=== PATIENT | male | born 1990 | race Caucasian/White ===

== ENCOUNTER 2023-05-04 13:11 | Inpatient (IN) | payer OTHER ==
[~2023-05-04] VITALS: Ht 190.5 cm; Wt 94.8 kg
[2023-05-04] MEDS ORDERED: FAMOTIDINE 20MG TABLET PO SCH (14:15)
[2023-05-04] MEDS ORDERED: ONDANSETRON 4MG ODT PO STA (14:15)
[2023-05-04] MEDS ORDERED: MAGNESIUM/ALUMINUM HYDROXIDE/SIMETHICONE 30ML UDC PO STA (14:15)
[2023-05-04 14:41] LABS: BASOPHILS % 0.2 % (0.0-2.0); HEMATOCRIT. 48.9 % (42.0-52.0); HEMOGLOBIN. 16.4 g/dL (14.0-18.0); LYMPHOCYTES % 11.9 % (20.0-50.0); MEAN CORPUSCULAR HEMOGLOBIN 31.4 pg (28.0-32.0); MEAN CORPUSCULAR HGB CONC 33.5 g/dL (31.0-37.0); MEAN CORPUSCULAR VOLUME 93.7 fL (80.0-94.0); MONOCYTES % 6.7 % (2.0-8.0); NEUTROPHILS % 81.2 % (40.0-76.0); PLATELET 286 x1000/uL (130-400); RED BLOOD CELL COUNT 5.22 mill/uL (4.7-6.1); RED CELL DISTRIBUTION WIDTH 14.9 % (11.6-14.6); WHITE BLOOD COUNT 20.5 x1000/uL (4.5-11.0)
[2023-05-04 14:45] LABS: CHLORIDE 103 mEq/L (98-107); INDEX HEMOLYSI 1 (1-3); INDEX ICTERIC 1 (1-4); INDEX LIPEMIC 1 (1-3); POTASSIUM 3.3 mEq/L (3.5-5.1); SODIUM 137 mEq/L (136-145)
[2023-05-04 14:55] LABS: ALANINE AMINOTRANSFERASE 33 IU/L (13-61); ALBUMIN 4.2 g/dL (3.4-5.0); ASPARTATE AMINOTRANSFERASE 30 IU/L (15-37); BILIRUBIN TOTAL 0.4 mg/dL (0.1-1.0); CALCIUM 9.3 mg/dL (8.5-10.1); CARBON DIOXIDE 20 mEq/L (21-32); GLUCOSE 134 mg/dL (70-105); PROTEIN TOTAL 8.4 g/dL (6.0-8.3); UREA NITROGEN BLOOD 15 mg/dL (7-21)
[2023-05-04] MEDS ORDERED: MAGNESIUM/ALUMINUM HYDROXIDE/SIMETHICONE 30ML UDC PO NR (17:15)
[2023-05-04] MEDS ORDERED: FAMOTIDINE 20MG TABLET PO NR (17:15)
[2023-05-04] MEDS ORDERED: ONDANSETRON 4MG ODT PO NR (17:15)
[2023-05-04] MEDS ORDERED: ONDANSETRON HCL 4MG/2ML INJ IV STA (17:54)
[2023-05-04] MEDS ORDERED: MORPHINE SULFATE 4 MG/ML CPJ (NOT FOR IM USE) IV STA (17:54)
[2023-05-04] MEDS ORDERED: MORPHINE SULFATE 10 MG/ML CPJ IV ONE (19:00)
[2023-05-04] MEDS ORDERED: SODIUM CHLORIDE 0.9% 1,000 ML IV ONE (19:00)
[2023-05-04] MEDS ORDERED: MORPHINE SULFATE 10 MG/ML CPJ IV NR (19:15)
[2023-05-04] MEDS ORDERED: HYDROMORPHONE HCL/PF 2MG/ML CPJ IV ONE (20:15)
[2023-05-05] MEDS ORDERED: HYDROMORPHONE HCL/PF 2MG/ML CPJ IV ONE (01:00)
[2023-05-05 02:40] VITALS: BP 155/92; PULSE 95; RESP 18; TEMP 97.1
[2023-05-05] MEDS ORDERED: NALOXONE HCL 0.4MG/ML VIAL IV PRN (04:15)
[2023-05-05] MEDS: DEXT 5%/0.45% NACL KCL 20MEQ/L 1,000 ML IV SCH ×2 (04:26→21:47)
[2023-05-05] MEDS: MORPHINE SULFATE 2 MG/ML CPJ (NOT FOR IM USE) IV PRN ×4 (04:27→22:54)
[2023-05-05 08:00] VITALS: BP 145/92; PULSE 97; RESP 18; TEMP 96.9
[2023-05-05 10:59] LABS: HEMATOCRIT. 49.6 % (42.0-52.0); HEMOGLOBIN. 16.4 g/dL (14.0-18.0); MEAN CORPUSCULAR HGB CONC 33.1 g/dL (31.0-37.0); MEAN CORPUSCULAR VOLUME 93.9 fL (80.0-94.0); PLATELET 205 x1000/uL (130-400); RED BLOOD CELL COUNT 5.28 mill/uL (4.7-6.1); RED CELL DISTRIBUTION WIDTH 15.1 % (11.6-14.6); WHITE BLOOD COUNT 14.3 x1000/uL (4.5-11.0)
[2023-05-05 11:01] LABS: DIFFERENTIAL COMMENT 1
[2023-05-05 11:05] LABS: CHLORIDE 100 mEq/L (98-107); INDEX HEMOLYSI 4 (1-3); INDEX ICTERIC 1 (1-4); INDEX LIPEMIC 1 (1-3); SODIUM 128 mEq/L (136-145)
[2023-05-05 11:14] LABS: AMYLASE 427 IU/L (25-115); CALCIUM 8.4 mg/dL (8.5-10.1); CARBON DIOXIDE 20 mEq/L (21-32); CHOLESTEROL 147 mg/dL (<200); CREATININE 1.1 mg/dL (0.6-1.3); GLUCOSE 381 mg/dL (70-105); HDL CHOLESTEROL 90 mg/dL (40-59); LDL CHOLESTEROL 42 mg/dL (5-100); UREA NITROGEN BLOOD 26 mg/dL (7-21)
[2023-05-05 11:40] LABS: POTASSIUM 5.5 mEq/L (3.5-5.1)
[2023-05-05 12:00] VITALS: BP 148/105; PULSE 102; RESP 19; TEMP 96.9
[2023-05-05 15:22] LABS: PLATELET ESTIMATE NORMAL
[2023-05-05 16:00] VITALS: BP 134/98; PULSE 108; RESP 18; TEMP 97.7
[2023-05-05 21:54] VITALS: BP 146/88; PULSE 102; RESP 20; TEMP 98
[2023-05-06] MEDS: KETOROLAC 30MG/ML VIAL IV PRN ×2 (03:07→13:40)
[2023-05-06 06:55] LABS: HEMOGLOBIN. 14.5 g/dL (14.0-18.0); MEAN CORPUSCULAR HGB CONC 33.7 g/dL (31.0-37.0); MEAN CORPUSCULAR VOLUME 95.2 fL (80.0-94.0); MEAN PLATELET VOLUME 9.6 fl (7.4-10.4); PLATELET 150 x1000/uL (130-400); RED BLOOD CELL COUNT 4.51 mill/uL (4.7-6.1); RED CELL DISTRIBUTION WIDTH 15.1 % (11.6-14.6)
[2023-05-06 07:47] LABS: DIFFERENTIAL COMMENT 1
[2023-05-06] MEDS: MORPHINE SULFATE 2 MG/ML CPJ (NOT FOR IM USE) IV PRN ×2 (08:59→20:53)
[2023-05-06] MEDS: PANTOPRAZOLE SODIUM 40 MG/VIAL IV SCH (08:59)
[2023-05-06 11:07] LABS: POTASSIUM 5.9 mEq/L (3.5-5.1)
[2023-05-06 11:19] LABS: CALCIUM 8.5 mg/dL (8.5-10.1); CREATININE 1.7 mg/dL (0.6-1.3)
[2023-05-06] MEDS ORDERED: DEXT 5%/0.9% NACL 1,000 ML IV SCH (13:30)
[2023-05-06] MEDS: SODIUM CHLORIDE 0.9% 1,000 ML IV SCH ×3 (15:00→23:32)
[2023-05-06] MEDS ORDERED: CLONIDINE 0.1MG TABLET PO PRN (15:15)
[2023-05-06] MEDS ORDERED: PIPERACILLIN/TAZ 3.375G PREMIX 50 ML IV SCH (15:15)
[2023-05-06] MEDS ORDERED: ONDANSETRON HCL 4MG/2ML INJ IV PRN (15:15)
[2023-05-06 17:11] LABS: PLATELET ESTIMATE NORMAL
[2023-05-06] MEDS: PIPERACILLIN/TAZOBACTAM 3.375G in DEXT 5% WATER 50ML IV SCH ×2 (17:32→23:32)
[2023-05-06 20:00] VITALS: BP 136/92; PULSE 85; RESP 18; TEMP 101.3
[2023-05-06] MEDS ORDERED: DEXTROSE 50% WATER 50ML SYRINGE IV PRN ×2 (20:00→22:30)
[2023-05-06] MEDS ORDERED: INSULIN LISPRO 100 UNITS/ML SUBCUT NR (20:30)
[2023-05-06] MEDS: ENOXAPARIN 40MG/0.4ML SYR SUBCUT SCH (20:52)
[2023-05-06] MEDS: INSULIN LISPRO 100 UNITS/ML SUBCUT SCH ×2 (20:55→21:00)
[2023-05-06] MEDS: ACETAMINOPHEN 325MG TABLET PO PRN (20:58)
[2023-05-06] MEDS ORDERED: BLOOD SUGAR DIAGNOSTIC STRIP TEST SCH (21:00)
[2023-05-06 21:31] LABS: BASOPHILS % 0.2 % (0.0-2.0); HEMATOCRIT. 39.3 % (42.0-52.0); HEMOGLOBIN. 12.9 g/dL (14.0-18.0); LYMPHOCYTES % 10.8 % (20.0-50.0); MEAN CORPUSCULAR HEMOGLOBIN 31.8 pg (28.0-32.0); MEAN CORPUSCULAR VOLUME 96.4 fL (80.0-94.0); MEAN PLATELET VOLUME 9.7 fl (7.4-10.4); MONOCYTES % 11.8 % (2.0-8.0); NEUTROPHILS % 77.2 % (40.0-76.0); PLATELET 140 x1000/uL (130-400); RED BLOOD CELL COUNT 4.08 mill/uL (4.7-6.1); RED CELL DISTRIBUTION WIDTH 15.4 % (11.6-14.6); WHITE BLOOD COUNT 9.8 x1000/uL (4.5-11.0)
[2023-05-06 21:39] LABS: CALCIUM 8.6 mg/dL (8.5-10.1)
[2023-05-06 21:44] LABS: CREATININE 1.7 mg/dL (0.6-1.3)
[2023-05-07] VITALS: BP 125/82; PULSE 85; RESP 17; TEMP 98.8
[2023-05-07] MEDS: KETOROLAC 30MG/ML VIAL IV PRN ×3 (00:53→21:23)
[2023-05-07] MEDS: SODIUM CHLORIDE 0.9% 1,000 ML IV SCH ×6 (02:42→22:57)
[2023-05-07 04:00] VITALS: BP 122/84; PULSE 91; RESP 20; TEMP 98.8
[2023-05-07] MEDS: PIPERACILLIN/TAZOBACTAM 3.375G in DEXT 5% WATER 50ML IV SCH ×3 (05:29→21:44)
[2023-05-07] MEDS: MORPHINE SULFATE 2 MG/ML CPJ (NOT FOR IM USE) IV PRN ×3 (05:30→18:51)
[2023-05-07 07:11] LABS: BASOPHILS % 0.3 % (0.0-2.0); DIFFERENTIAL COMMENT 0; EOSINOPHILS % 0.9 % (0.0-5.0); HEMATOCRIT. 36.5 % (42.0-52.0); HEMOGLOBIN. 12.4 g/dL (14.0-18.0); LYMPHOCYTES % 14.3 % (20.0-50.0); MEAN CORPUSCULAR HEMOGLOBIN 32.1 pg (28.0-32.0); MEAN CORPUSCULAR HGB CONC 34.1 g/dL (31.0-37.0); MEAN CORPUSCULAR VOLUME 94.2 fL (80.0-94.0); MEAN PLATELET VOLUME 9.6 fl (7.4-10.4); MONOCYTES % 14.5 % (2.0-8.0); PLATELET 134 x1000/uL (130-400); RED BLOOD CELL COUNT 3.87 mill/uL (4.7-6.1); RED CELL DISTRIBUTION WIDTH 15.1 % (11.6-14.6); WHITE BLOOD COUNT 8.7 x1000/uL (4.5-11.0)
[2023-05-07] MEDS: BLOOD SUGAR DIAGNOSTIC STRIP TEST SCH (07:28)
[2023-05-07 07:38] LABS: CHLORIDE 102 mEq/L (98-107); INDEX HEMOLYSI 4 (1-3); INDEX ICTERIC 2 (1-4); INDEX LIPEMIC 1 (1-3); SODIUM 135 mEq/L (136-145)
[2023-05-07 07:46] LABS: ALANINE AMINOTRANSFERASE 25 IU/L (13-61); ALBUMIN 2.9 g/dL (3.4-5.0); ASPARTATE AMINOTRANSFERASE 145 IU/L (15-37); BILIRUBIN DIRECT 0.9 mg/dL (0.0-0.2); BILIRUBIN TOTAL 2.3 mg/dL (0.1-1.0); CALCIUM 8.2 mg/dL (8.5-10.1); CARBON DIOXIDE 26 mEq/L (21-32); CREATININE 1.8 mg/dL (0.6-1.3); GLUCOSE 205 mg/dL (70-105); PROTEIN TOTAL 6.8 g/dL (6.0-8.3); UREA NITROGEN BLOOD 54 mg/dL (7-21)
[2023-05-07 07:51] LABS: POTASSIUM 4.6 mEq/L (3.5-5.1)
[2023-05-07 08:00] VITALS: BP 123/78; PULSE 81; RESP 20; TEMP 98.8
[2023-05-07] MEDS: PANTOPRAZOLE SODIUM 40 MG/VIAL IV SCH (09:46)
[2023-05-07] MEDS: INSULIN LISPRO 100 UNITS/ML SUBCUT SCH ×4 (09:55→21:16)
[2023-05-07 12:00] VITALS: BP 127/75; PULSE 83; RESP 19; TEMP 100.2
[2023-05-07] MEDS: ACETAMINOPHEN 325MG TABLET PO PRN ×2 (14:13→21:14)
[2023-05-07 16:00] VITALS: BP 117/73; PULSE 87; RESP 19; TEMP 99.2
[2023-05-07 20:00] VITALS: BP 110/65; PULSE 88; RESP 19; TEMP 101.8
[2023-05-07] MEDS: ENOXAPARIN 40MG/0.4ML SYR SUBCUT SCH (21:15)
[2023-05-08] VITALS: BP 115/72; PULSE 82; RESP 18; TEMP 100.4
[2023-05-08] MEDS: MORPHINE SULFATE 2 MG/ML CPJ (NOT FOR IM USE) IV PRN ×2 (01:10→10:00)
[2023-05-08] MEDS: SODIUM CHLORIDE 0.9% 1,000 ML IV SCH ×3 (03:35→23:24)
[2023-05-08 04:00] VITALS: BP 117/73; PULSE 84; RESP 18; TEMP 99
[2023-05-08] MEDS: PIPERACILLIN/TAZOBACTAM 3.375G in DEXT 5% WATER 50ML IV SCH ×3 (05:26→22:08)
[2023-05-08] MEDS: KETOROLAC 30MG/ML VIAL IV PRN (05:36)
[2023-05-08] MEDS: BLOOD SUGAR DIAGNOSTIC STRIP TEST SCH ×3 (06:54→17:22)
[2023-05-08 07:21] LABS: HEMATOCRIT. 34.8 % (42.0-52.0); HEMOGLOBIN. 11.7 g/dL (14.0-18.0); MEAN CORPUSCULAR HEMOGLOBIN 31.6 pg (28.0-32.0); MEAN CORPUSCULAR HGB CONC 33.5 g/dL (31.0-37.0); MEAN CORPUSCULAR VOLUME 94.3 fL (80.0-94.0); MEAN PLATELET VOLUME 9.3 fl (7.4-10.4); PLATELET 165 x1000/uL (130-400); RED BLOOD CELL COUNT 3.69 mill/uL (4.7-6.1); RED CELL DISTRIBUTION WIDTH 15.5 % (11.6-14.6); WHITE BLOOD COUNT 11.6 x1000/uL (4.5-11.0)
[2023-05-08 07:22] LABS: PROTHROMBIN TIME 10.4 sec (9.6-11.0)
[2023-05-08 07:27] LABS: DIFFERENTIAL COMMENT 1
[2023-05-08 08:00] VITALS: BP 115/69; PULSE 84; RESP 20; TEMP 100.9
[2023-05-08 08:28] LABS: CHLORIDE 97 mEq/L (98-107); INDEX HEMOLYSI 4 (1-3); INDEX ICTERIC 1 (1-4); INDEX LIPEMIC 1 (1-3); SODIUM 132 mEq/L (136-145)
[2023-05-08] MEDS: INSULIN LISPRO 100 UNITS/ML SUBCUT SCH ×4 (08:50→20:47)
[2023-05-08 08:53] LABS: ALANINE AMINOTRANSFERASE 26 IU/L (13-61); ALBUMIN 2.8 g/dL (3.4-5.0); AMYLASE 298 IU/L (25-115); ASPARTATE AMINOTRANSFERASE 62 IU/L (15-37); BILIRUBIN DIRECT 0.6 mg/dL (0.0-0.2); BILIRUBIN TOTAL 1.6 mg/dL (0.1-1.0); CALCIUM 8.4 mg/dL (8.5-10.1); CARBON DIOXIDE 27 mEq/L (21-32); CREATININE 1.3 mg/dL (0.6-1.3); GLUCOSE 232 mg/dL (70-105); LACTATE DEHYDROGENASE 1262 IU/L (100-240); PROTEIN TOTAL 6.9 g/dL (6.0-8.3); UREA NITROGEN BLOOD 35 mg/dL (7-21)
[2023-05-08] MEDS: PANTOPRAZOLE SODIUM 40 MG/VIAL IV SCH (09:42)
[2023-05-08 10:41] LABS: PLATELET ESTIMATE NORMAL
[2023-05-08 12:00] VITALS: BP 115/69; PULSE 86; RESP 20; TEMP 100.2
[2023-05-08] MEDS ORDERED: HYDROCODONE/ACETAMINOPHEN 5/325MG TABLET PO PRN (12:00)
[2023-05-08 13:07] LABS: POTASSIUM 4.2 mEq/L (3.5-5.1)
[2023-05-08] MEDS: ACETAMINOPHEN 325MG TABLET PO PRN (17:46)
[2023-05-08 18:00] VITALS: BP 115/69; PULSE 90; RESP 20; TEMP 101.7
[2023-05-08 20:00] VITALS: BP 119/64; PULSE 92; RESP 22; TEMP 100.4
[2023-05-08] MEDS: ENOXAPARIN 40MG/0.4ML SYR SUBCUT SCH (20:35)
[2023-05-09] VITALS: BP 108/66; PULSE 88; RESP 20; TEMP 100.6
[2023-05-09 04:00] VITALS: BP 107/69; PULSE 85; RESP 19; TEMP 100.6
[2023-05-09] MEDS: SODIUM CHLORIDE 0.9% 1,000 ML IV SCH ×3 (06:00→19:38)
[2023-05-09] MEDS: PIPERACILLIN/TAZOBACTAM 3.375G in DEXT 5% WATER 50ML IV SCH ×3 (06:01→21:26)
[2023-05-09] MEDS: ACETAMINOPHEN 325MG TABLET PO PRN ×2 (06:07→16:37)
[2023-05-09] MEDS: INSULIN LISPRO 100 UNITS/ML SUBCUT SCH ×5 (06:43→21:37)
[2023-05-09 07:26] LABS: HEMATOCRIT. 32.7 % (42.0-52.0); HEMOGLOBIN. 10.9 g/dL (14.0-18.0); MEAN CORPUSCULAR HEMOGLOBIN 31.6 pg (28.0-32.0); MEAN CORPUSCULAR HGB CONC 33.4 g/dL (31.0-37.0); MEAN CORPUSCULAR VOLUME 94.7 fL (80.0-94.0); MEAN PLATELET VOLUME 9.1 fl (7.4-10.4); PLATELET 191 x1000/uL (130-400); RED BLOOD CELL COUNT 3.45 mill/uL (4.7-6.1); RED CELL DISTRIBUTION WIDTH 15.1 % (11.6-14.6); WHITE BLOOD COUNT 11.6 x1000/uL (4.5-11.0)
[2023-05-09 07:38] LABS: CHLORIDE 98 mEq/L (98-107); INDEX HEMOLYSI 4 (1-3); INDEX ICTERIC 1 (1-4); INDEX LIPEMIC 1 (1-3); SODIUM 131 mEq/L (136-145)
[2023-05-09 07:41] LABS: POTASSIUM 4.7 mEq/L (3.5-5.1)
[2023-05-09 07:48] LABS: ALANINE AMINOTRANSFERASE 21 IU/L (13-61); ALBUMIN 2.6 g/dL (3.4-5.0); ASPARTATE AMINOTRANSFERASE 35 IU/L (15-37); BILIRUBIN DIRECT 0.5 mg/dL (0.0-0.2); BILIRUBIN TOTAL 1.1 mg/dL (0.1-1.0); CALCIUM 8.5 mg/dL (8.5-10.1); CARBON DIOXIDE 26 mEq/L (21-32); CREATININE 1.1 mg/dL (0.6-1.3); GLUCOSE 255 mg/dL (70-105); PROTEIN TOTAL 6.7 g/dL (6.0-8.3); UREA NITROGEN BLOOD 18 mg/dL (7-21)
[2023-05-09 08:00] VITALS: BP 108/65; PULSE 80; RESP 18; TEMP 98.8
[2023-05-09 08:07] LABS: DIFFERENTIAL COMMENT 1
[2023-05-09] MEDS: PANTOPRAZOLE SODIUM 40 MG/VIAL IV SCH (08:40)
[2023-05-09 12:00] VITALS: BP 122/75; PULSE 82; RESP 18; TEMP 98.6
[2023-05-09] MEDS ORDERED: INSULIN GLARGINE 100 UNITS/ML SUBCUT NR (13:00)
[2023-05-09 16:00] VITALS: BP 125/75; PULSE 86; RESP 18; TEMP 100.9
[2023-05-09 16:26] LABS: PLATELET ESTIMATE NORMAL
[2023-05-09 20:00] VITALS: BP 113/78; PULSE 79; RESP 18; TEMP 99.1
[2023-05-09] MEDS: ENOXAPARIN 40MG/0.4ML SYR SUBCUT SCH (21:27)
[2023-05-09] MEDS: BLOOD SUGAR DIAGNOSTIC STRIP TEST SCH (21:28)
[2023-05-10] VITALS: BP 116/75; PULSE 84; RESP 18; TEMP 100.4
[2023-05-10] MEDS: SODIUM CHLORIDE 0.9% 1,000 ML IV SCH ×4 (00:30→15:30)
[2023-05-10] MEDS: ACETAMINOPHEN 325MG TABLET PO PRN (00:37)
[2023-05-10 04:00] VITALS: BP 118/77; PULSE 78; RESP 18; TEMP 99.5
[2023-05-10] MEDS: PIPERACILLIN/TAZOBACTAM 3.375G in DEXT 5% WATER 50ML IV SCH ×2 (05:57→13:54)
[2023-05-10 07:46] LABS: HEMATOCRIT. 30.8 % (42.0-52.0); HEMOGLOBIN. 10.4 g/dL (14.0-18.0); MEAN CORPUSCULAR HEMOGLOBIN 31.7 pg (28.0-32.0); MEAN CORPUSCULAR HGB CONC 33.9 g/dL (31.0-37.0); MEAN CORPUSCULAR VOLUME 93.8 fL (80.0-94.0); MEAN PLATELET VOLUME 9.5 fl (7.4-10.4); PLATELET 229 x1000/uL (130-400); RED BLOOD CELL COUNT 3.28 mill/uL (4.7-6.1); RED CELL DISTRIBUTION WIDTH 15.1 % (11.6-14.6); WHITE BLOOD COUNT 12.8 x1000/uL (4.5-11.0)
[2023-05-10] MEDS: INSULIN LISPRO 100 UNITS/ML SUBCUT SCH ×3 (07:50→17:26)
[2023-05-10 08:00] VITALS: BP 122/75; PULSE 75; RESP 19; TEMP 100.1
[2023-05-10 08:03] LABS: DIFFERENTIAL COMMENT 1
[2023-05-10 08:10] LABS: CHLORIDE 102 mEq/L (98-107); INDEX HEMOLYSI 3 (1-3); INDEX ICTERIC 1 (1-4); INDEX LIPEMIC 1 (1-3); POTASSIUM 3.6 mEq/L (3.5-5.1); SODIUM 139 mEq/L (136-145)
[2023-05-10 08:16] LABS: ALANINE AMINOTRANSFERASE 20 IU/L (13-61); ALBUMIN 2.3 g/dL (3.4-5.0); ASPARTATE AMINOTRANSFERASE 29 IU/L (15-37); BILIRUBIN DIRECT 0.4 mg/dL (0.0-0.2); BILIRUBIN TOTAL 0.9 mg/dL (0.1-1.0); CALCIUM 7.9 mg/dL (8.5-10.1); CARBON DIOXIDE 28 mEq/L (21-32); CREATININE 0.9 mg/dL (0.6-1.3); GLUCOSE 175 mg/dL (70-105); PROTEIN TOTAL 6.1 g/dL (6.0-8.3); UREA NITROGEN BLOOD 10 mg/dL (7-21)
[2023-05-10] MEDS ORDERED: METF-414 MT (09:58)
[2023-05-10] MEDS ORDERED: LEVO750T68 MT (09:58)
[2023-05-10] MEDS: PANTOPRAZOLE SODIUM 40 MG/VIAL IV SCH (10:32)
[2023-05-10 12:00] VITALS: BP 132/74; PULSE 75; RESP 18; TEMP 99.9
[2023-05-10 12:28] VITALS: BP 132/74; PULSE 75; TEMP 99.9; O2SAT 99
[2023-05-10 14:25] LABS: PLATELET ESTIMATE NORMAL
[2023-05-10 16:00] VITALS: BP 127/82; PULSE 80; RESP 19; TEMP 100.8
== END 2023-05-10 17:40 | disposition home or self-care (01) | DRG 393 ==
LOC: ER 14:37 → EDBEDREQ 05-05 00:50 → EDBEDREQTM 05-05 00:50 → ENRESERV 05-05 01:04 → 6EST 05-05 03:51
PROVIDERS: ADMIT Internal Medicine; ATTEND Internal Medicine
DX: K52.1 Toxic gastroenteritis and colitis (principal); K85.20 Alcohol induced acute pancreatitis without necrosis or infection; N17.9 Acute kidney failure, unspecified; R18.8 Other ascites; E11.65 Type 2 diabetes mellitus with hyperglycemia; F17.200 Nicotine dependence, unspecified, uncomplicated; F10.10 Alcohol abuse, uncomplicated; T36.95XA Adverse effect of unspecified systemic antibiotic, initial encounter
CPT/HCPCS: 36415; 71045; 74181; 76705; 80048; 80053; 80061; 80076; 82150; 82270; 82465; 82962; 83036; 83615; 83718; 83721; 85025; 86301; 87015; 87045; 87427; 87449; 89055; 99285; C9113; J1170; J1650; J1815; J1885; J2270; J2405; J2543; J7030; J7060; Q0162

== ENCOUNTER 2024-03-07 13:04 | Emergency (ER) | payer OTHER ==
[~2024-03-07] VITALS: Ht 190.5 cm; Wt 72.0 kg
[~2024-03-07 13:04] MED LIST: LEVO750T68 MT; METF-414 MT
[2024-03-07 13:07] VITALS: O2SAT 96
[2024-03-07] MEDS: TETANUS, DIPHTHERIA, PERTUSSIS VAC/PF 0.5ML (>10YR OLD) IM ONE (13:45)
[2024-03-07] MEDS ORDERED: LIDOCAINE HCL/EPINEPHRINE 1%-EPI 1:100,000 50 ML VIAL INFIL ONE (13:45)
[2024-03-07] MEDS: LIDOCAINE HCL/EPINEPHRINE 1%-EPI 1:100,000 20 ML VIAL INFIL NR (14:09)
[2024-03-07] MEDS ORDERED: CEPH500C2 MT (15:37)
[2024-03-07 15:53] VITALS: BP 137/79; PULSE 90; RESP 18; TEMP 98.2
== END 2024-03-07 17:20 | disposition home or self-care (01) ==
LOC: ER 13:04
DX: S51.811A Laceration without foreign body of right forearm, initial encounter (principal); W18.30XA Fall on same level, unspecified, initial encounter; Y93.89 Activity, other specified; Y92.89 Other specified places as the place of occurrence of the external cause; Y99.8 Other external cause status
CPT/HCPCS: 73090; 12005; 99283; J3490; Z7610 ×2; 12004